=== PATIENT | male | born 1985 | race Caucasian/White ===

== ENCOUNTER → 2018-11-05 07:16 | Outpatient (CLI) | payer OTHER, SELFPAY ==
--- NOTE | 2018-11-05 | DI.MRI.S_ITS ---
PROCEDURE: MR ELBOW RT WO CON INDICATIONS: Lateral epicondylitis, right elbow TECHNIQUE: Noncontrast coronal proton density fast spin echo and T2 fast spin echo with fat saturation, axial and sagittal T1 spin echo and T2 fast spin echo with fat saturation through the elbow. COMPARISON: None. FINDINGS: Image quality: Motion degraded. Lateral structures: The lateral ulnar collateral ligament and radial collateral ligament both appear intact. The overlying common extensor tendon also appears normal. Medial structures: The ulnar collateral ligament appears intact. The overlying common flexor tendon appears normal. The ulnar nerve appears normal in size and signal within the cubital tunnel. Anterior structures: The biceps and brachialis tendons both appear intact as they insert onto the proximal radius and ulna, respectively. No bicipitoradial bursal fluid. The median and radial neurovascular bundles appear normal; no focal muscle atrophy to suggest nerve impingement. Posterior structures: There is mild thickening and intrasubstance signal change of the triceps tendon. There is adjacent soft tissue edema. Bone and cartilage: No bone marrow contusions or fractures. No osteochondral injuries. IMPRESSION: Low grade thickening and internal signal change involving the common extensor origin in keeping with mild lateral epicondylitis syndrome. Please correlate with exam findings. Mild insertional triceps tendinopathy. Motion degraded examination. Dictated by: Richar Ching M.D. on 11/05/2018 at 8:54 Approved by: Richar Ching M.D. on 11/05/2018 at 9:00
== END ==
PROVIDERS: PCP Family Medicine; Visit Provider Family Medicine
DX: M77.11 Lateral epicondylitis, right elbow (principal)
CPT/HCPCS: 73221